=== PATIENT | female | born 1980 | race Caucasian/White ===

== ENCOUNTER 2017-12-04 14:41 | Emergency (ER) | payer OTHER ==
[2017-12-04 14:44] VITALS: BP 140/83; BMI 28.3
--- NOTE | 2017-12-04 15:03 | DR.URIAD ---
HPI - Time Seen Time seen: 15:00 - HPI Comment HPI Comment: GETTING WORSE. - Complaint Chief Complaint Doctors Comments: FEVER, COUGH, CONGESTION, SORETHROAT , HEADACHE AND MUSCLE PAIN TIMES ONE DAY. Chief Complaint:: PT. C/O HEADACHE, COUGH, SORE THROAT, FLUID BEHIND RIGHT EAR, AND FEVER OF 103. 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 Past Surgical History Comment: TUBAL LIGATION - Family History History of Family Medical Conditions: Yes Family Medical History: Diabetes Mellitus, [place] - Social History Does patient currently use any type of tobacco product: Yes Have you used tobacco products in the last 12 months: Yes Type of Tobacco Use: Cigarettes Does any household member use tobacco: No Alcohol Use: None Do you use any recreational Drugs:: No Lives With: Family Lives Where: Home - infectious screening In the last 2 months have you had wt loss of >10#?: NO Have you had fever, night sweats or hemotysis?: No Have you traveled outside the country in the last 6 months?: No Isolation: Standard ROS - Review of Systems Constitutional: No Symptoms Reported (AT HOME), Fever Eyes: No Symptoms Reported ENTM: Ear Pain, Nose Discharge, Nose Congestion, Throat Pain Respiratoy: Moist Cough. negative: Short of Breath, Wheezing, Hemoptysis Gastrointestinal/Abdominal: No Symptoms Reported Genitourinary: No Symptoms Reported Neurological: Headache Musculoskeletal: Muscle Pain Integumentary: No Symptoms Reported Hematologic/Lymphatic: No Symptoms Reported Endocrine: No Symptoms Reported All Other Systems: Reviewed and Negative PE - Vital Signs Vitals: Temperature 96.9 F Pulse Rate 98 Respiratory Rate 20 Blood Pressure 140/83 O2 Sat by Pulse Oximetry 98 - General Limitations: No Limitations General Appearance: Alert - Head Head Exam: Normal Inspection - Eyes Eye exam: Normal Appearance - ENT ENT Exam: Normal External Ear Exam External Ear Exam: Normal External Inspection TM/Canal Exam: Bilateral Bulging Nose Exam: Normal Nose Exam Mouth Exam: Normal Inspection Throat Exam: Tonsillar Erythema. negative: Tonsillomegaly, Tonsillar Exudate - Neck Neck Exam: Trachea Midline - Chest Chest Inspection: Symmetric Chest Wall Rise - Respiratory Respiratory Exam: Normal Lung Sounds Bilat Respiratory Exam: Bilateral Rhonchi, Lower Rhonchi - Cardiovascular Cardiovascular Exam: Regular Rate, Normal Rhythm, Normal Heart Sounds - Abdominal Exam Abdominal Exam: Normal Inspection - Extremeties Extremities Exam: Normal Inspection - Back Back Exam: Normal Inspection - Neurologic Neurological Exam: Alert, Oriented X3 - Psychiatric Psychiatric Exam: Normal Affect, Normal Mood - Skin Skin Exam: Erythema MDM - Differential Diagnosis Differential Diagnosis: Influenza A, Influenza B, Otitis media, Streptococcal pharyngitis, Viral pharyngitis, Pneumonia, Sinsusitis, URI Course - Treatment Treatment: SEE ORDERS. - Education/Counseling Education/Counseling: Patient, Education Educated On: Diagnosis, Needs for Follow Up ROR - Labs Reviewed Laboratory Results Reviewed?: Yes Laboratory: Influenza Type A (PCR) Negative (NEGATIVE) 12/04/17 15:01 Influenza Type B (PCR) Negative (NEGATIVE) 12/04/17 15:01 S. pyogenes (TEM-PCR) Not detected (NOT DETECT) 12/04/17 15:11 - Diagnosis Discharge Problem: Tonsillitis, Bronchitis Sinusitis Qualifiers: Sinusitis location: unspecified location Chronicity: acute Recurrence: not specified as recurrent Qualified Code(s): J01.90 - Acute sinusitis, unspecified - Discharge Plan Disposition: HOME, SELF-CARE Condition: Stable Prescriptions: Amoxicillin [Amoxil 875 mg] 875 mg PO Q12H #20 tab Benzonatate [TESSALON PERLES *] 200 mg PO TID PRN #30 cap PRN Reason: Cough Ibuprofen [MOTRIN TAB 800 MG *] 800 mg PO Q8H PRN #20 tab PRN Reason: Pain/Inflammation - Follow ups/Referrals Follow ups/Referrals: ANUPAMA NEWTON [Primary Care Provider] - 3 days - Instructions Instructions: Tonsillitis, [id number], Sinusitis, Adult, [id number], Acute Bronchitis, [id number] Additional Instructions: RETURN TO ED IF WORSE.
== END 2017-12-04 16:10 | disposition home or self-care (01) ==
LOC: ER 14:52
DX: J40 Bronchitis, not specified as acute or chronic (principal); J03.90 Acute tonsillitis, unspecified; J01.80 Other acute sinusitis
CPT/HCPCS: 87502; 87651; 99282

== ENCOUNTER 2018-02-22 21:13 | Emergency (ER) | payer OTHER ==
[2018-02-22 21:20] VITALS: BP 132/85; BMI 31.8
[2018-02-22] MEDS ORDERED: TORADOL 60 MG VIAL ONE (21:24)
[2018-02-22] MEDS ORDERED: TORADOL 60 MG VIAL IM ONE (21:24)
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
== END 2018-02-22 22:38 | disposition home or self-care (01) ==
LOC: ER 21:13
PROC: 2W38X1Z Immobilization of Right Upper Extremity using Splint (ICD-10-PCS; principal; 2018-02-22)
DX: S82.51XA Displaced fracture of medial malleolus of right tibia, initial encounter for closed fracture (principal); S63.501A Unspecified sprain of right wrist, initial encounter; Y33.XXXA Other specified events, undetermined intent, initial encounter
CPT/HCPCS: 29515; 73100; 73610; 96372; 99282; J1885